=== PATIENT | male | born 1980 | race Two or more races ===

== ENCOUNTER 2017-11-22 18:56 | Emergency (ER) | payer MEDICAID ==
[~2017-11-22] VITALS: Ht 180.3 cm; Wt 83.5 kg
[2017-11-22 19:18] VITALS: BP 147/99
[2017-11-22 20:04] LABS: Basophils # (auto) 0.1 uL; Basophils % (auto) 0.7 % (0.0-2.0); Eosinophils # (auto) 0.1 uL; Hemoglobin 13.9 g/dL (13.5-17.5); Lymphocytes % (auto) 12.5 % (10.0-50.0); Mean Corpuscular Hemoglobin 30.1 pg (28.0-32.0); Mean Corpuscular Hgb Conc. 34.1 g/dL (32.0-36.0); Mean Corpuscular Volume 88.4 fL (80.0-100.0); Monocytes # (auto) 0.6 uL; Monocytes % (auto) 8.1 % (0.0-12.0); Neutrophils % (auto) 77.7 % (37.0-80.0); Platelet Count (auto) 325 10^3/uL (140-450); Red Blood Cells 4.63 10^6/uL (4.5-5.90); Red Cell Distribution Width 13.2 % (11.8-14.3); White Blood Cell 7.7 10^3/uL (4.4-10.8)
[2017-11-22 20:14] LABS: Albumin 3.4 g/dL (3.4-5.0); Bilirubin, Total 0.4 mg/dL (0.2-1.0); Calcium 8.3 mg/dL (8.5-10.1); Potassium 3.7 mmol/L (3.5-5.1); Total Protein 7.6 g/dL (6.4-8.2)
[2017-11-22 22:38] LABS: Urine Bacteria NONE SEEN /hpf (None Seen); Urine Blood Negative /uL (Negative); Urine Specific Gravity 1.015 (1.001-1.035); Urine WBC 3 /hpf (0 - 3)
[2017-11-22] MEDS ORDERED: PENICILLIN G BENZ 1200000 UNITS/2 ML SYRG IM ONE (23:00)
[2017-11-22] MEDS ORDERED: cefTRIAXone SOD 1,000 MG VL IM ONE (23:00)
[2017-11-22] MEDS ORDERED: AZITHROMYCIN 250 MG TAB PO ONE (23:00)
[2017-11-22] MEDS ORDERED: LIDOCAINE 1% (LOCAL ANESTH.) PF 5ml SDV ONE (23:09)
== END 2017-11-22 23:42 | disposition home or self-care (01) ==
LOC: ER 19:00
DX: A51.0 Primary genital syphilis (principal); A53.9 Syphilis, unspecified; Z20.2 Contact with and (suspected) exposure to infections with a predominantly sexual mode of transmission
CPT/HCPCS: 36415; 80053; 81001; 85025; 86592; 96372; 99284; J0561; J0696

== ENCOUNTER 2018-09-25 19:53 | Emergency (ER) | payer MEDICAID ==
[~2018-09-25] VITALS: Ht 180.3 cm; Wt 81.6 kg
[2018-09-25] MEDS ORDERED: cloNIDine HCL 0.1 MG TAB ONE (20:07)
[2018-09-25] MEDS ORDERED: cloNIDine HCL 0.1 MG TAB PO ONE (20:15)
[2018-09-25] MEDS ORDERED: methylPREDNISolone SOD SUCC 125 MG/2 ML VL IM ONE (21:45)
[2018-09-25] MEDS ORDERED: cefTRIAXone SOD 1,000 MG VL IM ONE (21:45)
[2018-09-25] MEDS ORDERED: AZITHROMYCIN 250 MG TAB PO ONE (21:45)
[2018-09-25 21:47] VITALS: BP 157/91
== END 2018-09-25 23:14 | disposition home or self-care (01) ==
LOC: ER 19:58
DX: B00.9 Herpesviral infection, unspecified (principal); Z20.2 Contact with and (suspected) exposure to infections with a predominantly sexual mode of transmission
CPT/HCPCS: 96372; 99283; J0696; J2930